=== PATIENT | male | born 1955 | race Caucasian/White ===

== ENCOUNTER 2022-03-12 00:21 | Day surgery (SDC) | payer MEDICARE, SELFPAY ==
[2022-03-04 13:12] VITALS: BMI 31.5
[2022-03-12 10:03] VITALS: BP 129/75; PULSE 90; RESP 16; TEMP 36.6; O2SAT 99; BMI 30.8
--- NOTE | 2022-03-12 10:03 | PM.HPGS ---
History of Present Illness History of Present Illness Consent: Risks, benefits, and alternatives have been discussed and questions answered. Patient agrees to proceed with procedure. Chief complaint: neoplasm screening Narrative: Dioni De Leon is a 67 year old male Presents for neoplasia screening colonoscopy. Patient's current weight appetite and bowel movements are normal. Patient denies abdominal pain. He has had no bleeding. Family history noncontributory. Patient presents today for neoplasia screening. Past medical history significant for atherosclerotic heart disease. He has a history of coronary artery bypass graft. Review of Systems Review of Systems: Review of systems noncontributory. FORMERLY [facility], [facility] Past Medical History Medical History ASHD (arteriosclerotic heart disease) Erectile dysfunction due to arterial disease Obesity (BMI 30.0-34.9) Surgical History Surgical History History of back surgery (~1984) Hx of heart bypass surgery (~2018) Family History Family History Sibling Diabetes mellitus Mother Family history of cardiovascular disease Family history of cardiac disorder Father Family history of cardiovascular disease Family history of cardiac disorder Family history of emphysema Social History Social History Smoking status: Never smoker Alcohol intake: current Drinks per week: 2 Alcohol use details: beer Substance use: never Substance use type: does not use Living arrangements: with family Spiritual care concerns: No Meds Home Medications and Allergies Home Medications Medication Instructions Recorded Confirmed Type aspirin 81 mg tablet,delayed 81 mg PO DAILY 10/18/19 03/04/22 History release (Adult Aspirin Regimen) simvastatin 40 mg tablet 40 mg PO DAILY 10/18/19 03/04/22 History sildenafil (pulm.hypertension) 20 20 mg PO DAILY PRN sexual activity 04/18/21 03/04/22 Rx mg tablet #90 tabs lisinopril 10 mg tablet 10 mg PO DAILY #90 tabs 12/18/21 03/04/22 Rx Allergies Allergy/AdvReac Type Severity Reaction Status Date / Time No Known Allergies Allergy Unknown Verified 03/12/22 10:01 Exam Narrative: Physical exam reveals patient to be alert. Vital signs stable. HEENT exam is unremarkable. Patient is anicteric. Lungs are clear to auscultation and percussion. Heart is without murmur or extra sounds. Abdomen bowel sounds are present soft nontender with no organomegaly. Digital external rectal exam is normal. Assessment and Plan Assessment and plan (1) Encounter for screening colonoscopy: Code(s): Z12.11 - Encounter for screening for malignant neoplasm of colon Status: Acute Assessment and Plan: Patient presents for screening colonoscopy. He appears to be at average risk for colon polyps. Further recommendations may be given after endoscopy.
--- NOTE | 2022-03-12 10:15 | WPDANESEPPF ---
Anes - Initial Pre Proc Eval Procedure: Operation Date: 03/12/22 11:15 Proposed Procedures p Screening Colonoscopy - Cale Haile MD Date/Time: 03/12/22 10:15 Surgeon: Cale Haile MD Pre Op Diagnosis: neoplasm screening Patient Data Age: 67 Gender: M Height: 1.83 m Weight: 103.2 kg Last Vital Signs Temp 97.8 F 03/12/22 10:03 Pulse 90 03/12/22 10:03 Resp 16 03/12/22 10:03 BP 129/75 03/12/22 10:03 Pulse Ox 99 03/12/22 10:03 O2 Del Method Room Air 03/12/22 10:03 Allergies Allergy/AdvReac Type Severity Reaction Status Date / Time No Known Allergies Allergy Unknown Verified 03/12/22 10:01 Home Medications Medication Instructions Recorded Confirmed Type aspirin 81 mg tablet,delayed 81 mg PO DAILY 10/18/19 03/04/22 History release (Adult Aspirin Regimen) simvastatin 40 mg tablet 40 mg PO DAILY 10/18/19 03/04/22 History sildenafil (pulm.hypertension) 20 20 mg PO DAILY PRN sexual activity 04/18/21 03/04/22 Rx mg tablet #90 tabs lisinopril 10 mg tablet 10 mg PO DAILY #90 tabs 12/18/21 03/04/22 Rx Patient hx anesthesia problems: none Family hx anesthesia problems: none Results Review: All pre-operative results and documents have been reviewed as part of the pre-operative evaluation. [facility] Past Medical History Medical History ASHD (arteriosclerotic heart disease) Erectile dysfunction due to arterial disease Obesity (BMI 30.0-34.9) Surgical History Surgical History History of back surgery (~1984) Hx of heart bypass surgery (~2018) Family History Family History Sibling Diabetes mellitus Mother Family history of cardiovascular disease Family history of cardiac disorder Father Family history of cardiovascular disease Family history of cardiac disorder Family history of emphysema Social History Social History Smoking status: Never smoker Alcohol intake: current Drinks per week: 2 Alcohol use details: beer Substance use: never Substance use type: does not use Living arrangements: with family Spiritual care concerns: No Anes - Eval Final PreProcedure Day of Procedure 03/12/22 10:15 Patient weight: obese Heart: regular rate and rhythm Lungs: clear to auscultation Airway: Mallampati scale class II Neurological: alert and oriented Last oral intake: >/= 8 hours ASA classification: III Emergent: no Anesthetic plan: proceed Anesthesia type and monitoring: general GIVS and standard monitoring Results Review: All pre-operative results and documents have been reviewed as part of the pre-operative evaluation. Informed Consent: The patient's anesthetic plan and its attendant risks and benefits were discussed with the patient/family/POA. Questions were solicited and answers provided to the satisfaction of the patient/family/POA.
[2022-03-12] MEDS: LACTATED RINGERS 1,000 ML 150 ML IV CONT (10:18)
[2022-03-12 11:16] VITALS: BP 112/66; PULSE 73; RESP 21; O2SAT 98
[2022-03-12 11:26] VITALS: BP 98/66; PULSE 76; RESP 24; O2SAT 98
[2022-03-12 11:36] VITALS: BP 103/69; PULSE 73; RESP 21; O2SAT 97
== END 2022-03-12 11:40 | disposition home or self-care (01) ==
PROVIDERS: PCP Family Medicine; Visit Provider Internal Medicine Gastroenterology
PROC: 0DJD8ZZ Inspection of Lower Intestinal Tract, Via Natural or Artificial Opening Endoscopic (ICD-10-PCS; CPT 45378; principal; 2022-03-12 11:15)
DX: Z12.11 Encounter for screening for malignant neoplasm of colon (principal); K64.8 Other hemorrhoids; K57.30 Diverticulosis of large intestine without perforation or abscess without bleeding; I25.10 Atherosclerotic heart disease of native coronary artery without angina pectoris; E66.9 Obesity, unspecified; Z68.30 Body mass index [BMI] 30.0-30.9, adult; Z79.82 Long term (current) use of aspirin; Z95.1 Presence of aortocoronary bypass graft
CPT/HCPCS: G0121; J2704; J7120

== ENCOUNTER 2024-06-08 13:54 | Outpatient (CLI) | payer MEDICARE, SELFPAY ==
--- NOTE | ~2024-06-08 | XR_ITS ---
HISTORY: M77.8 - Other enthesopathies, not elsewhere classified COMPARISON: 06/25/2021 TECHNIQUE: 2 views of the right shoulder were performed FINDINGS: No acute fracture. The glenohumeral and acromioclavicular joint space is maintained The visualized portion of the adjacent right lung is clear. The humeral head is well seated within the glenoid fossa. IMPRESSION: No acute fracture or anterior dislocation. Reviewed, dictated and finalized at location A. UNITY ARTIST
--- OUTSIDE RECORDS SUMMARY | 2024-06-08 14:48 | XMS_ITS | Clinical Summary ---
Author Organization [facility] [address] Address [address] [place] [address] Care Team Providers Care Bus Assistant Name Role Phone Ezra Ortiz MD Primary Care Provider [phone] [phone] Allergies No known active allergies Medications aspirin 81 mg enteric coated tablet Take 1 tablet (81 mg total) by mouth daily Active lisinopriL (PRINIVIL,ZESTR [place]) 10 mg tablet Take 1 tablet (10 mg total) by mouth daily 01/02/2021 Active simvastatin (ZOCOR) 40 mg tabletIndicatio ns:Coronary artery disease involving [place] coronary artery of [place] heart without angina pectoris Take 1 tablet by mouth nightly 90 tablet 2 10/27/2023 Active Active Problems Problem Noted Date Diagnosed Date Coronary artery disease of n ative heart with stable angina pectoris 11/05/2018 Overview (11/05/2018): Added automatically from request for surgery [id number] Adiposity 09/11/2013 Overview (08/08/2016): OBESITY NOS Left ventricular hypertrophy 09/11/2013 Overview (08/08/2016): LVH Finding of region of thorax 09/11/2013 Overview (08/08/2016): ABN FD-INTRATHOR ORG NEC 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 Gender Identity Not on file Sexual Orientation Not on file Obstetrics History Last Filed Vital Signs Vital Sign Reading Time Taken Comments Blood Pressure 102/68 09/18/2023 8:57 AM CDT Pulse 69 09/18/2023 8:57 AM CDT Temperature 36.6 C (97.9 F) 12/17/2018 11:24 AM CDT Respiratory Rate 14 12/17/2018 11:2 4 AM CDT Oxygen Saturation 100% 09/18/2023 8:57 AM CDT Inhaled Oxygen Concentration - - Weight 102.6 kg (226 lb 4.8 oz) 09/18/2023 8:57 AM CDT Height 182.9 cm (6') 09/18/2023 8:57 AM CDT Body Mass Index 30.69 09/18/2023 8:57 AM CDT Plan of Treatment Health Maintenance Due Date Last Done Comments Colon Cancer Screening-Colonoscopy 1954 Depression Screening 1954 Fall Risk Assessment 1954 Hepatitis C Screening 1955 Pneumococcal vaccine 65+ (1 of 2 - PCV) 01/17/1960 DTaP/Tdap/Td Vaccine (1 - Tdap) 1965 Hepatitis B Screening 01/17/1972 Zoster Vaccine (1 of 2) 01/17/2004 Well Visit 65+ 2019 Influenza Vaccine (#1) 2023 02/03/2018 Medical Devices Explanted Type Area Pulmonary Fellow Device Identifier Shelf Expiration Date Model / Serial / Lot Medtronic Card Vasc Surgery [address] [place] 1.5mm 14mm Radiopaque Bulb Tapered Tip Soft - [id number] Explanted:Qty: 1 on 11/11/2018 by Alexei Ly MD at [facility] Other - see comments N/A: Heart Medtronic Inc 08/25/2021 [id number] / / Description:Coronary shunt Medtronic Card Vasc Surgery [address] [place] 2mm 14mm Radiopaque Bulb Tapered Tip Soft Intracoronary - [id number] Explanted:Qty: 1 on 11/11/2018 by Alexei Ly MD at [facility] Other - see comments N/A: Heart [employer] Inc 07/26/2021 [id number] / / Description:Coronary shunt Insurance AETNA MEDICARE [facility] HEALTHLINK OPEN ACCESS Advance Directives For more information, please contact: [phone] * Full Code (Latest Code Status on File) Date Activated Date Inactivated Comments 11/11/2018 2:56 PM 11/16/2018 10:29 PM Care Teams Bus Assistant Relationship Specialty Start Date End Date Ezra Ortiz MD PCP - General 01/05/08
--- OUTSIDE RECORDS SUMMARY | 2024-06-08 14:48 | XMS_ITS | Referral Summary ---
Author Organization [facility] [address] Address [address] [place] [address] Care Team Providers Care Civil Preparedness Training Officer Name Role Phone Ezra Ortiz MD Primary Care Provider [phone] [phone] Allergies No known active allergies Medications aspirin 81 mg enteric coated tablet Take 1 tablet (81 mg total) by mouth daily Active lisinopriL (PRINIVIL,ZESTR [place]) 10 mg tablet Take 1 tablet (10 mg total) by mouth daily 01/02/2021 Active simvastatin (ZOCOR) 40 mg tabletIndicatio ns:Coronary artery disease involving [place] coronary artery of [place] heart without angina pectoris Take 1 tablet by mouth nightly 90 tablet 2 10/27/2023 Active Active Problems Problem Noted Date Diagnosed Date Coronary artery disease of n ative heart with stable angina pectoris 11/05/2018 Overview (11/05/2018): Added automatically from request for surgery [id number] Adiposity 09/11/2013 Overview (08/08/2016): OBESITY NOS Left ventricular hypertrophy 09/11/2013 Overview (08/08/2016): LVH Finding of region of thorax 09/11/2013 Overview (08/08/2016): ABN FD-INTRATHOR ORG NEC Multiple-type hyperlipidemia 09/11/2013 Overview (08/08/2016): MIXED HYPERLIPIDEMIA Hypertension 09/11/2013 Overview (08/08/2016): HYPERTENSION NOS Social History Tobacco Use Types Packs/Day Years Used Date Smoking Tobacco: Never Smokeless Tobacco: Never Tobacco Cessation:Counseling Given: Not Answered Sex and Gender Information Value Date Recorded Sex Assigned at Not on file 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[employer] Gender Identity Not on file Sexual Orientation Not on file Last Filed Vital Signs Vital Sign Reading [...] 09/18/2023 8:57 AM CDT Plan of Treatment Not on file Medical Devices Explanted Type Area Math Coach Device Identifier Shelf Expiration Date Model / Serial / Lot Medtronic Card Vasc Surgery [address] [place] 1.5mm 14mm Radiopaque Bulb Tapered Tip Soft - [id number] Explanted:Qty: 1 on 11/11/2018 by Alexei Ly MD at [facility] Other - see comments N/A: Heart [employer] Inc 08/25/2021 [id number] / / Description:Coronary shunt Medtronic Card Vasc Surgery [address] [place] 2mm 14mm Radiopaque Bulb Tapered Tip Soft Intracoronary - [id number] Explanted:Qty: 1 on 11/11/2018 by Alexei Ly MD at [facility] Other - see comments N/A: Heart [employer] Inc 07/26/2021 [id number] / / Description:Coronary shunt Insurance AETNA MEDICARE [facility] HEALTHLINK OPEN ACCESS AETNA MEDICARE Advance Directives For more information, please contact: [phone] * Full Code (Latest Code Status on File) Date Activated Date Inactivated Comments 11/11/2018 2:56 PM 11/16/2018 10:29 PM Care Teams Civil Preparedness Training Officer Relationship Specialty Start Date End Date Ezra Ortiz MD PCP - General 01/05/08
== END 2024-06-08 13:55 | disposition home or self-care (01) ==
PROVIDERS: PCP Family Medicine; Visit Provider Orthopaedic Surgery
DX: M77.8 Other enthesopathies, not elsewhere classified (principal)
CPT/HCPCS: 73030

== ENCOUNTER 2025-01-19 14:51 | Outpatient (CLI) | payer MEDICARE, SELFPAY ==
--- NOTE | ~2025-01-19 | XR_ITS ---
EXAMINATION: XR hip BI 2V w AP pelvis, 01/19/2025 15:03 CDT HISTORY: W18.30XA - Fall on same level, unspecified, initial encou... COMPARISON: No comparisons available. Findings: No acute fracture or malalignment. No significant degenerative changes. Soft tissues unremarkable. Impression: No acute fracture or malalignment. Reviewed, dictated and finalized at location A. Impression: No acute fracture or malalignment.
--- NOTE | ~2025-01-19 | XR_ITS ---
XR lumbar spine 2-3V Indication: W18.30XA - Fall on same level, unspecified, initial encou... Comparison: None Findings: Grade 1 retrolisthesis of L4 on L5, no fracture. There is a remote superior endplate fracture of L2. No acute fracture identified. Severe loss of disc at L4-5 and L5-S1. Soft tissues unremarkable Impression: No acute abnormality. Reviewed, dictated and finalized at location A. Impression: No acute abnormality.
--- OUTSIDE RECORDS SUMMARY | 2025-01-19 14:56 | XMS_ITS | Encounter Summary ---
Author Organization [facility] Healthcare Address [address] [place] [address] Care Team Providers Care Kinesiologist Name Role Phone Ezra Ortiz MD Primary Care Provider [phone] [phone] Encounter Details Date Type Department Care Team (Late st Contact Info) Description 03/11/2024 Orders Only [facility] Information Management [address] [place] [address] Scanning, Provider Social History Tobacco Use Types Packs/Day Years Used Date Smoking Tobacco: Never Smokeless Tobacco: Never Sex and Gender Information Value Date Recorded Sex Assigned at Not on file 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
--- OUTSIDE RECORDS SUMMARY | 2025-01-19 14:56 | XMS_ITS | Clinical Summary ---
Author Organization [facility] [address] Address [address] [place] [address] Care Team Providers Care Departmental Secretary Name Role Phone Ezra Ortiz MD Primary Care Provider [phone] [phone] Allergies No known active allergies Medications aspirin 81 mg enteric coated tablet Take 1 tablet (81 mg total) by mouth daily Active lisinopriL (PRINIVIL,ZESTR [place]) 10 mg tablet Take 1 tablet (10 mg total) by mouth daily 1 Active sildenafiL (VIAGRA) 25 mg tablet Take 1 tablet (25 mg total) by mouth daily as needed for erectile dysfunction Active simvastatin (ZOCOR) 40 mg tabletIndicatio ns:Coronary artery disease involving [place] coronary artery of [place] heart without angina pectoris Take 1 tablet by mouth nightly 90 tablet 1 5 Active Active Problems Problem Noted Date Diagnosed Date Coronary artery disease of n ative heart with stable angina pectoris 11/05/2018 Overview (11/05/2018): Added automatically from request for surgery [id number] Adiposity 09/11/2013 Overview (08/08/2016): OBESITY NOS Left [...] on file 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 Gender Identity Not on file Sexual Orientation Not on file Obstetrics History Last Filed Vital Signs Vital Sign Reading Time Taken Comments Blood Pressure 126/76 09/23/2024 9:14 AM CDT Pulse 73 09/23/2024 9:14 AM CDT Temperature 36.6 C (97.9 F) 12/17/2018 11:24 AM CDT Respiratory Rate 14 12/17/2018 11:24 AM CDT Oxygen Saturation 98% 09/23/2024 9:14 AM CDT Inhaled Oxygen Concentration - - Weight 99.3 kg (219 lb) 09/23/2024 9:14 AM CDT Height 182.9 cm (6') 09/23/2024 9:14 AM CDT Body Mass Index 29.7 09/23/2024 9:14 AM CDT Plan of Treatment Health Maintenance Due Date Last Done Comments Colon Cancer Screening-Colonoscopy 1954 Depression Screening 1954 Fall Risk Assessment 1954 Hepatitis C Screening 1954 DTaP/Tdap/Td Vaccine (1 - Tdap) 1965 Hepatitis B Screening 01/17/1972 Pneumococcal vaccine 65+ (1 of 2 - PCV) 1973 Zoster Vaccine (1 of 2) 01/17/2004 Well Visit 65+ 2019 Influenza Vaccine (#1) 2024 02/03/2018 Medical Devices Explanted Type Area Collections Officer Device Identifier Shelf Expiration Date Model / Serial / Lot Medtronic Card Vasc Surgery [address] [place] 1.5mm 14mm Radiopaque Bulb Tapered Tip Soft - [id number] Explanted:Qty: 1 on 11/11/2018 by Alexei Ly MD at [facility] Other - see comments N/A: Heart [employer] Inc 08/25/2021 [id number] / / Description:Coronary shunt Medtronic Card Vasc Surgery [address] [place] 2mm 14mm Radiopaque Bulb Tapered Tip Soft Intracoronary - [id number] Explanted:Qty: 1 on 11/11/2018 by Alexei Ly MD at [facility] Other - see comments N/A: Heart [employer] 07/26/2021 [id number] / / Description:Coronary shunt Insurance AETNA MEDICARE [facility] Member Subscriber Plan / Payer (Ef fective 2007-Present) Name:Dioni De Leon Member ID:[id number] Relation to Subscriber:Spouse Name:TEJAS WOODARD Subscriber ID:[id number] Date of :1951 (Home) Address: [address] [place] [id number] Payer ID:[id number] Type:[employer] HMO/PPO Address: [address] [place] [id number] HEALTHLINK OPEN ACCESS AET MEDICARE Advance Directives For more information, please contact: [phone] * Full Code (Latest Code Status on File) Date Activated Date Inactivated Comments 11/11/2018 2:56 PM 11/16/2018 10:29 PM Care Teams Departmental Secretary Relationship Specialty Start Date End Date Ezra Ortiz MD PCP - General 01/05/08
== END 2025-01-19 14:52 | disposition home or self-care (01) ==
PROVIDERS: PCP Family Medicine; Visit Provider Nurse Practitioner Family
DX: M54.50 Low back pain, unspecified (principal); W18.30XA Fall on same level, unspecified, initial encounter
CPT/HCPCS: 72100; 73521

== ENCOUNTER 2025-04-01 10:13 | Outpatient (CLI) | payer MEDICARE, SELFPAY ==
--- NOTE | ~2025-04-01 | XR_ITS ---
XR shoulder RT min 2V 04/01/2025 10:37 Indication: Rotator cuff tear. Procedure: 4 views right shoulder Comparison: 10/06/2024 Findings: Mild polyarticular osteoarthritis. No fracture, subluxation or dislocation. There are median sternotomy wires. No soft tissue abnormality. Impression: 1: Mild polyarticular osteoarthritis. Reviewed, dictated and finalized at location I. MANAGER Impression: 1: Mild polyarticular osteoarthritis.
--- OUTSIDE RECORDS SUMMARY | 2025-04-01 10:35 | XMS_ITS | Clinical Summary ---
Author Organization [facility] [address] Address [address] [place] [address] Care Team Providers Care Regional Airline Pilot Name Role Phone Ezra Ortiz MD Primary Care Provider [phone] [phone] Allergies No known active allergies Medications aspirin [...] 40 mg tabletIndicatio ns:Coronary artery disease involving [place] coronary artery of [place] heart without angina pectoris Take 1 tablet by mouth nightly 90 tablet 1 5 Active Active Problems Problem Noted Date Diagnosed Date Coronary artery disease of n ative heart with stable angina pectoris 11/05/2018 Overview (11/05/2018): Added automatically from request for surgery [id number] Adiposity 09/11/2013 Overview (08/08/2016): OBESITY NOS Left [...] on file 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 Gender Identity Not on file Sexual Orientation [...] 2024 02/03/2018 Medical Devices Explanted Type Area Vice President Of Nursing Device Identifier Shelf Expiration Date Model / Serial / Lot Medtronic Card Vasc Surgery [address] [place] 1.5mm 14mm Radiopaque Bulb Tapered Tip Soft - [id number] Explanted:Qty: 1 on 11/11/2018 by Alexei Ly MD at [facility] Other - see comments N/A: Heart [employer] 08/25/2021 [id number] / / Description:Coronary shunt Medtronic Card Vasc Surgery [address] [place] 2mm 14mm Radiopaque Bulb Tapered Tip Soft Intracoronary - [id number] Explanted:Qty: 1 on 11/11/2018 by Alexei Ly MD at [facility] Other - see comments N/A: Heart [employer] Inc 07/26/2021 [id number] / / Description:Coronary shunt Insurance AETNA MEDICARE [facility] OPEN ACCESS AET MEDICARE Advance Directives For more information, please contact: [phone] * Full Code (Latest Code Status on File) Date Activated Date Inactivated Comments 11/11/2018 2:56 PM 11/16/2018 10:29 PM Care Teams Regional Airline Pilot Relationship Specialty Start Date End Date Ezra Ortiz MD PCP - General 01/05/08
== END 2025-04-01 10:14 | disposition home or self-care (01) ==
PROVIDERS: PCP Family Medicine; Visit Provider Orthopaedic Surgery
DX: M75.121 Complete rotator cuff tear or rupture of right shoulder, not specified as traumatic (principal); M77.8 Other enthesopathies, not elsewhere classified; M19.011 Primary osteoarthritis, right shoulder
CPT/HCPCS: 73030